=== PATIENT | female | born 2000 | race Caucasian/White ===

== ENCOUNTER → 2021-08-05 | Outpatient (CLI) | payer MEDICAID, SELFPAY ==
[2021-08-05 15:50] LABS: Hematocrit 31.7 % (37-47); Hemoglobin 10.5 g/dL (12.0-15.0); Mean Corp Hgb Conc 33.1 g/dL (32-36); Mean Corpuscular Volume 90.6 fL (81-99); Mean Platelet Vol. 10.1 fl (6.2-12.0); Platelet Count 237 K/mm3 (150-450); RBC Distribution Width CV 13.2 % (11.6-14.6); RBC Distribution Width SD 43.5 fl (35.1-43.9); White Blood Count 9.5 K/mm3 (4.4-11.0)
[2021-08-05 15:56] LABS: Glucose Challenge Gest 1H 50g 138 mg/dL (70-140)
== END | disposition home or self-care (01) ==
PROVIDERS: Visit Provider Obstetrics & Gynecology
DX: Z34.82 Encounter for supervision of other normal pregnancy, second trimester (principal)
CPT/HCPCS: 36415; 82950; 85027

== ENCOUNTER 2021-09-02 19:32 | Outpatient (CLI) | payer MEDICAID, SELFPAY ==
[2021-09-02 19:46] VITALS: TEMP 36.9
[2021-09-02 19:48] VITALS: BP 119/61; PULSE 105
[2021-09-02 19:50] VITALS: PULSE 103; O2SAT 98; BMI 25.0
[2021-09-02 19:59] VITALS: PULSE 96; O2SAT 98
[2021-09-02 20:04] VITALS: PULSE 100; O2SAT 98
[2021-09-02] MEDS: Lactated Ringers 1,000 ML 999 ML IV (20:15)
[2021-09-02] MEDS: Ondansetron 4 MG/2 ML Vial IV (20:19)
--- NOTE | 2021-09-15 08:58 | OB.TRI.NOTE ---
HPI - General General Date of Service: 09/02/21 HPI Narrative LOURDES MARTIN, is a 21 F who presents to labor and delivery at 31 weeks 2 days gestation with nausea, vomiting, diarrhea for 5 days. She indicates that her family has had the flu including her other children and she recently vomited twice. She is feeling movement but it seems to be diminished. Maternal Data Information Final SOO: 11/02/21 Final SOO Source: US <20 weeks Gestational age: 31 weeks 2 days PFSH PFSH Home Medications eqkpuynz-[id number]-[id number]-FA 1 mg tablet 1 tab PO DAILY 09/02/21 [History Last Taken 09/01/21] Allergy/AdvReac Type Severity Reaction Status Date / Time No Known Allergies Allergy Verified 09/02/21 19:50 NST FHR Rate Baby A NST Reactive:: Yes FHR Category:: Category I Assessment & Plan (1) Decreased movement: PLAN: 31-week 2-day gestation with decreased movement and nausea and vomiting likely from viral gastroenteritis. Denies any contractions or signs and symptoms of labor. Nausea improved with IV hydration and IV Zofran. Reactive nonstress test. Patient discharged to home with routine instructions.
== END 2021-09-02 21:25 | disposition home or self-care (01) ==
LOC: WPOUT 19:39 → WP 19:39
PROVIDERS: Visit Provider Obstetrics & Gynecology
DX: O36.8130 Decreased fetal movements, third trimester, not applicable or unspecified (principal); Z3A.31 31 weeks gestation of pregnancy; O21.9 Vomiting of pregnancy, unspecified
CPT/HCPCS: 59025; 59050; 96361; 99218; J7120; G0378; J2405

== ENCOUNTER 2021-09-16 17:34 | Emergency (ER) | payer MEDICAID, SELFPAY ==
[2021-09-16 17:35] VITALS: BP 94/62; PULSE 105; RESP 16; TEMP 36.8; O2SAT 98; BMI 25.4
--- NOTE | 2021-09-16 17:56 | ED.VIS.DYS ---
HPI <MORGAN Stanford - Last Filed: 09/16/21 19:18> History of Present Illness Chief Complaint: Asthma Narrative Narrative: 21-year-old female with history of asthma, currently 33 weeks presents with 1 week of increased shortness of breath. She states she had this intermittently throughout her but she seems more short of breath over the last week. It is the same whether she is sitting, lying down, or walking and there is no aggravating or alleviating factors. It is not exertional or pleuritic. She was using her inhaler but then noticed it was . Today she also had some bilateral chest pain but none currently. No fever cough or congestion. Today she was also feeling mild lower abdominal contractions which she thinks might be Dank Patel. She has had normal movement and no vaginal bleeding or fluids. She went to the OB ED but they did not have a bed so they sent her down here. PFSH <MORGAN Stanford - Last Filed: 09/16/21 19:18> [facility] Home Medications vyagtlck-[id number]-FA 1 mg tablet 1 tab PO DAILY 09/02/21 [History Last Taken 09/01/21] albuterol sulfate 90 mcg/actuation aerosol inhaler (Proventil HFA) 2 puff inhalation Q4H #6.7 grams 09/16/21 [Rx Last Taken Unknown] Allergy/AdvReac Type Severity Reaction Status Date / Time No Known Allergies Allergy Verified 09/16/21 17:38 Social History Smoking Status: Never smoker ROS <MORGAN Stanford - Last Filed: 09/16/21 19:18> ROS ED ROS Narrative Constitutional: Negative for fever, chills, malaise. Eyes: Negative for visual change. ENT: Negative for sore throat, ear pain, rhinorrhea. CVS: Positive for chest pain. Negative for palpitations, syncope. Respiratory: Positive for shortness of breath. Negative for cough, orthopnea. GI: Negative for abdominal pain, nausea, vomiting, diarrhea, constipation, melena, hematochezia. : Negative for dysuria, hematuria or frequency. Neuro: Negative for headache, motor/sensory dysfunction. Skin: Negative for rash, abscess, or wound. Musc: Negative for joint pain, swelling, trauma. Heme: Negative for easy bruising, bleeding, lymphadenopathy. EXAM <MORGAN Stanford - Last Filed: 09/16/21 19:18> Physical Exam Narrative Exam Narrative: CONST: Patient sitting in no acute distress. EYES: Normal inspection. NECK: Normal inspection. RESP: No respiratory distress, CTAB. CVS: Regular rate and rhythm, no murmur, no gallop. ABD: Gravid abdomen is soft and nontender, no guarding or rebound.. Back: Normal inspection, no CVA tenderness. SKIN: Color normal, no rash, warm, dry, intact. EXTREMITIES: Normal appearance, no pedal edema. NEURO: Oriented x4. PSYCH: Normal affect. Const Vital Signs: 09/16/21 17:35 09/16/21 17:50 09/16/21 21:45 Temperature 98.2 F Temperature Source Temporal Pulse Rate 105 H 84 Respiratory Rate 16 16 Respiratory Effort Short of Breath Blood Pressure 94/62 117/72 Blood Pressure Mean 72 87 Pulse Ox 98 96 Oxygen Delivery Method Room Air Room Air <Dr. Coleman Medrano MD - Last Filed: 09/16/21 22:32> Physical Exam Const Vital Signs: 09/16/21 17:35 09/16/21 17:50 09/16/21 21:45 Temperature 98.2 F Temperature Source Temporal Pulse Rate 105 H 84 Respiratory Rate 16 16 Respiratory Effort Short of Breath Blood Pressure 94/62 117/72 Blood Pressure Mean 72 87 Pulse Ox 98 96 Oxygen Delivery Method Room Air Room Air MDM <MORGAN Stanford - Last Filed: 09/16/21 19:18> [facility] Narrative Medical decision making narrative: Patient is 33 weeks presenting with 1 week history of shortness of breath. She feels short of breath all the time whether resting, sleeping, or walking with no change. She had transient chest pain this morning but none now. She has no exertional or pleuritic pain. No leg pain or swelling. No history of DVT/PE or recent surgery or immobilization. She appears well and nontoxic. Heart rate was 105, otherwise normal vital signs. She is speaking in full sentences in no distress and is 98% on room air. Heart is regular. Lungs clear. Gravid abdomen soft, nontender. She is having normal movement and no vaginal bleeding or discharge. EKG is normal sinus rhythm with no ischemic changes. Based on her history I really have no concern for PE. Labs show normal white count and microcytic anemia of 10.1 not significantly changed from 10.5 around 6 weeks ago. BMP is normal. UA is contaminated so will defer antibiotics and sent for culture. 1. Shortness of breath Lab Data Attestation: I reviewed the patient's lab results. Labs: Laboratory Results - last 24 hr 09/16/21 09/16/21 09/16/21 18:05 18:27 18:27 WBC 9.1 RBC 3.48 L Hgb 10.1 L Hct 31.0 L MCV 89.1 MCH 29.0 MCHC 32.6 RDW Std Deviation 42.5 RDW Coeff of Elder 13.1 Plt Count 224 MPV 10.1 Immature Gran % (Auto) 0.800 Neut % (Auto) 74.1 H Lymph % (Auto) 18.4 L [place] % (Auto) 6.2 Eos % (Auto) 0.4 Baso % (Auto) 0.1 Absolute Neuts (auto) 6.8 Absolute Lymphs (auto) 1.68 Nucleated RBC % 0 D-Dimer Quant (PE/DVT) Sodium 137 Potassium 3.6 Chloride 107 Carbon Dioxide 24.0 Anion Gap 6 BUN 9 Creatinine 0.56 Estim Creat Clear Calc 138.38 Est GFR (MDRD) Af Amer 178 Est GFR (MDRD) Non-Af 147 BUN/Creatinine Ratio 16.2 Glucose 77 Calcium 8.2 L Urine Color Yellow Urine Clarity Sl. Cloudy Urine pH 6.5 Ur Specific [place] 1.010 Urine Protein 15 H Urine Glucose (UA) Normal Urine Ketones Negative Urine Occult Blood Negative Urine Nitrite Negative Urine Bilirubin Negative Urine Urobilinogen Normal Ur Leukocyte Esterase 500 H Urine RBC 0 SEEN Urine WBC 10-25 SEEN Ur Squamous Epith Cells 5-10 SEEN Urine Bacteria 2+ Urine Mucus 0 SEEN 09/16/21 19:50 WBC RBC Hgb Hct MCV MCH MCHC RDW Std Deviation RDW Coeff of Elder Plt Count MPV Immature Gran % (Auto) Neut % (Auto) Lymph % (Auto) [place] % (Auto) Eos % (Auto) Baso % (Auto) Absolute Neuts (auto) Absolute Lymphs (auto) Nucleated RBC % D-Dimer Quant (PE/DVT) 0.91 H* Sodium Potassium Chloride Carbon Dioxide Anion Gap BUN Creatinine Estim Creat Clear Calc Est GFR (MDRD) Af Amer Est GFR (MDRD) Non-Af BUN/Creatinine Ratio Glucose Calcium Urine Color Urine Clarity Urine pH Ur Specific [place] Urine Protein Urine Glucose (UA) Urine Ketones Urine Occult Blood Urine Nitrite Urine Bilirubin Urine Urobilinogen Ur Leukocyte Esterase Urine RBC Urine WBC Ur Squamous Epith Cells Urine Bacteria Urine Mucus Radiography Diagnostic Testing: Clinical Impression(s) from Imaging Studies Chest CTA 09/16/21 20:36 IMPRESSION: Pulmonary artery opacification is insufficient to exclude embolus. No obvious central pulmonary embolus. Enlarged pulmonary trunk may be secondary to inspiratory effort. Correlate with clinical suspicion for pulmonary hypertension. Small hiatal hernia. No other acute abnormal finding in the chest. Electronically Signed: Eduar Stoen MD at 21:25 EDT , EKG Initial EKG: Attestation: I personally reviewed and interpreted this EKG as follows: Interpretation: Sinus Rhythm and No Acute Injury Pattern Comments: Normal sinus rhythm, normal intervals, no acute ischemia <Dr. Coleman Medrano MD - Last Filed: 09/16/21 22:32> MDM MDM Narrative Medical decision making narrative: Patient is 33 weeks presenting with 1 week history of shortness of breath. She feels short of breath all the time whether resting, sleeping, or walking with no change. She had transient chest pain this morning but none now. She has no exertional or pleuritic pain. No leg pain or swelling. No history of DVT/PE or recent surgery or immobilization. She appears well and nontoxic. Heart rate was 105, otherwise normal vital signs. She is speaking in full sentences in no distress and is 98% on room air. Heart is regular. Lungs clear. Gravid abdomen soft, nontender. She is having normal movement and no vaginal bleeding or discharge. EKG is normal sinus rhythm with no ischemic changes. Based on her history I really have no concern for PE. Labs show normal white count and microcytic anemia of 10.1 not significantly changed from 10.5 around 6 weeks ago. BMP is normal. UA is contaminated so will defer antibiotics and sent for culture. 1. Shortness of breath I have personally performed a face to face assessment of the patient and have reviewed the RADHA Note. I performed a substantive portion of the visit including all aspects of the following. My miller findings include: History is [21-year-old healthy female history of asthma currently 33 weeks that I am seeing with her physician bilingual administrative assistant. Patient states that last week she has had intermittent shortness of breath. Never had a DVT or PE. Denies leg pain or swelling. Really denies any specific chest pain. There is no hemoptysis. She says that shortness of breath comes and goes. It is not specifically associated with exertion. She really has not been wheezing. She said it may or may not be her asthma. She has had no URI symptoms. No melena.] Exam is [well-appearing 21-year-old no acute distress vital signs stable afebrile. Pulse ox 90% room air no signs hypoxia. H EENT exam unremarkable. Moist remembers. Neck nontender no JVD. Lungs clear to auscultation bilaterally. Heart regular rhythm rate of 85 no murmur. Abdomen soft nontender no peritoneal signs. Distended gravid uterus. Moving all 4 extremities. Equal symmetrical radial pulses. Calves are nontender without edema or cords. Neurologically she is awake and alert. Patient's exam is very benign.] Medical Decision Making [21-year-old 33 weeks with intermittent atypical shortness of breath. On exam she is not wheezing. She is on silvina URI symptoms. We will do a shortness of breath work-up. Clinically I do not think this is a PE but she does have risk being . We will obtain a D-dimer. CBC shows a mild anemia with a hemoglobin of 10.1 which is stable and baseline for her. White count 9. Electrolytes unremarkable gap of 6. Normal BUN and creatinine. Glucose 77. UA is contaminated. She is not having any urinary tract infection symptoms. I do not think this needs to be treated.] Other additions or changes: [None] Repeat exam patient is doing well at 10:25 PM. She has no complaints. She is not short of breath. CTA was not completed definitively did not see any PEs but they cannot rule out peripheral PEs. Clinically analogous to case. Patient be discharged home with an inhaler and follow-up with her STRING WINDING MACHINE OPERATOR. I have the OB group on page to ensure close follow-up. Lab Data Labs: Laboratory Results - last 24 hr 09/16/21 09/16/21 09/16/21 18:05 18:27 18:27 WBC 9.1 RBC 3.48 L Hgb 10.1 L Hct 31.0 L MCV 89.1 MCH 29.0 MCHC 32.6 RDW Std Deviation 42.5 RDW Coeff of Elder 13.1 Plt Count 224 MPV 10.1 Immature Gran % (Auto) 0.800 Neut % (Auto) 74.1 H Lymph % (Auto) 18.4 L [place] % (Auto) 6.2 Eos % (Auto) 0.4 Baso % (Auto) 0.1 Absolute Neuts (auto) 6.8 Absolute Lymphs (auto) 1.68 Nucleated RBC % 0 D-Dimer Quant (PE/DVT) Sodium 137 Potassium 3.6 Chloride 107 Carbon Dioxide 24.0 Anion Gap 6 BUN 9 Creatinine 0.56 Estim Creat Clear Calc 138.38 Est GFR (MDRD) Af Amer 178 Est GFR (MDRD) Non-Af 147 BUN/Creatinine Ratio 16.2 Glucose 77 Calcium 8.2 L Urine Color Yellow Urine Clarity Sl. Cloudy Urine pH 6.5 Ur Specific [place] 1.010 Urine Protein 15 H Urine Glucose (UA) Normal Urine Ketones Negative Urine Occult Blood Negative Urine Nitrite Negative Urine Bilirubin Negative Urine Urobilinogen Normal Ur Leukocyte Esterase 500 H Urine RBC 0 SEEN Urine WBC 10-25 SEEN Ur Squamous Epith Cells 5-10 SEEN Urine Bacteria 2+ Urine Mucus 0 SEEN 09/16/21 19:50 WBC RBC Hgb Hct MCV MCH MCHC RDW Std Deviation RDW Coeff of Elder Plt Count MPV Immature Gran % (Auto) Neut % (Auto) Lymph % (Auto) [place] % (Auto) Eos % (Auto) Baso % (Auto) Absolute Neuts (auto) Absolute Lymphs (auto) Nucleated RBC % D-Dimer Quant (PE/DVT) 0.91 H* Sodium Potassium Chloride Carbon Dioxide Anion Gap BUN Creatinine Estim Creat Clear Calc Est GFR (MDRD) Af Amer Est GFR (MDRD) Non-Af BUN/Creatinine Ratio Glucose Calcium Urine Color Urine Clarity Urine pH Ur Specific [place] Urine Protein Urine Glucose (UA) Urine Ketones Urine Occult Blood Urine Nitrite Urine Bilirubin Urine Urobilinogen Ur Leukocyte Esterase Urine RBC Urine WBC Ur Squamous Epith Cells Urine Bacteria Urine Mucus Radiography Diagnostic Testing: Clinical Impression(s) from Imaging Studies Chest CTA 09/16/21 20:36 IMPRESSION: Pulmonary artery opacification is insufficient to exclude embolus. No obvious central pulmonary embolus. Enlarged pulmonary trunk may be secondary to inspiratory effort. Correlate with clinical suspicion for pulmonary hypertension. Small hiatal hernia. No other acute abnormal finding in the chest. Electronically Signed: Eduar Stone MD at 21:25 EDT , EKG Initial EKG: Interpretation: Sinus Tachycardia Discharge Plan Triage Chief Complaint: Asthma ED Midlevel Provider: Anne Nogueira ED Provider: Coleman Medrano Dx/Rx/DC Orders Clinical Impression: Acute dyspnea, Asthma, Third trimester , Anemia in Instructions: ED Dyspnea, Asthma Prescriptions: New albuterol sulfate [Proventil HFA] 90 mcg/actuation HFA aerosol inhaler 2 puff inhalation Q4H Qty: 6.7 1RF No Action 1 mg Tablet 1 tab PO DAILY Primary Care Provider: Care Physician,No Primary Referrals: Getachew Dsouza MD [STAFF PHYSICIAN] - As soon as possible Care Physician,No Primary [Primary Care Provider] - Activity Restrictions/Additional Instructions: We think your shortness of breath is most likely secondary to her asthma. Use your inhaler as needed. The CAT scan did not show any signs of a blood clot however could not completely rule out small blood clots in the periphery of your lungs. Follow-up with your STRING WINDING MACHINE OPERATOR to ensure you are improving. Return if you are feeling worse or start coughing up blood. Disposition Disposition: Home, Self Care
--- NOTE | 2021-09-16 17:58 | EKG12_ITS ---
Test Reason : asthma Blood Pressure : / mmHG Vent. Rate : 081 BPM Atrial Rate : 081 BPM P-R Int : 116 ms QRS Dur : 084 ms QT Int : 350 ms P-R-T Axes : 041 046 020 degrees QTc Int : 406 ms Normal sinus rhythm Normal ECG Confirmed by ALY HERNANDEZ, VIDAL ([id number]), technical editor ADRIANNA VELEZ ([id number]) on 09/27/2021 2:11:17 PM Referred By: Mitchell Confirmed By:VIDAL LU MD
--- NOTE | 2021-09-16 18:06 | EKG12_ITS ---
Test Reason : asthma Blood Pressure : / mmHG Vent. Rate : 081 BPM Atrial Rate : 081 BPM P-R Int : 116 ms QRS Dur : 084 ms QT Int : 350 ms P-R-T Axes : 041 046 020 degrees QTc Int : 406 ms Normal sinus rhythm Normal ECG No previous ECGs available Confirmed by ALY HERNANDEZ, VIDAL ([id number]), editorial director ADRIANNA VELEZ ([id number]) on 09/29/2021 1:08:12 PM Referred By: Mitchell Confirmed By:VIDAL LU MD
--- NOTE | 2021-09-16 18:07 | NURSING ---
NO OLD EKGS
[2021-09-16 18:10] LABS: Mucous, Urine 0 SEEN /hpf (<or=2+); Red Blood Cells-Urine 0 SEEN /hpf (0-5)
[2021-09-16 18:11] LABS: Color, Urine Yellow (Yellow); Glucose, Dipstick Normal (Normal); Ketone-Dipstick Negative (Negative); Leukocyte Esterase-Dipstick 500 /ul (Negative); Nitrite-Dipstick Negative (Negative); Occult Blood-Urine Negative /ul (Negative); Protein-Dipstick 15 mg/dl (Negative); Urine Bilirubin Dipstick Negative (Negative); Urine Clarity Sl. Cloudy (Clear); Urine Urobilinogen Normal (Normal); Urine pH 6.5 (5.0 - 8.0)
[2021-09-16 18:30] LABS: Bacteria 2+ /hpf (None Seen); Squamous Epithelial Cells - UA 5-10 SEEN /hpf (5-10); White Blood Cells 10-25 SEEN /hpf (0-5)
[2021-09-16 19:02] LABS: Absolute Lymphocyte Count 1.68 X10^3/uL (0.83-4.51); Absolute Neutrophil Count 6.8 X10^3/uL (2.0-7.7); Basophil# 0.01 X10^3/uL; Basophil% 0.1 % (0-1); Eosinophil# 0.04 X10^3/uL; Eosinophils% 0.4 % (0-5); Hemoglobin 10.1 g/dL (12.0-15.0); Lymphocyte # 1.68 X10^3/ul (0.83-4.51); Lymphocyte % 18.4 % (19-41); Mean Corp Hgb Conc 32.6 g/dL (32-36); Mean Corpuscular Volume 89.1 fL (81-99); Mean Platelet Vol. 10.1 fl (6.2-12.0); Monocyte# 0.57 X10^3/uL; Monocyte% 6.2 % (0-10); NRBC Flagged by Analyzer 0 % (0-5); Neutrophil # 6.76 X10^3/uL (2.7-7.7); Neutrophil % 74.1 % (47-70); Platelet Count 224 K/mm3 (150-450); RBC Distribution Width CV 13.1 % (11.6-14.6); RBC Distribution Width SD 42.5 fl (35.1-43.9); Red Blood Count 3.48 M/mm3 (4.2-5.4); White Blood Count 9.1 K/mm3 (4.4-11.0)
[2021-09-16 19:12] LABS: Anion Gap 6 (5-15); BUN 9 mg/dL (7-18); BUN/Creat Ratio 16.2 RATIO (10-20); Calcium,Total 8.2 mg/dL (8.5-10.1); Chloride 107 mmol/L (98-107); Creatinine, Serum 0.56 mg/dL (0.55-1.02); EST Glomerular Filtration Rate 147 mL/min (>60); Est Glom Filt Rate - Afr Amer 178 mL/min (>60); Estimated Creatinine Clearance 138.38 ml/min; Glucose 77 mg/dL (74-106); Potassium 3.6 mmol/L (3.5-5.1); Sodium Level 137 mmol/L (136-145)
[2021-09-16 20:25] LABS: D-Dimer Quantitative (DVT/PE) 0.91 FEU/ug/m (0.27-0.49)
--- NOTE | 2021-09-16 20:36 | CT_ITS ---
STUDY: CTA CHEST REASON FOR EXAM: Female, 21 years old. Shortness of breath x1 week, elevated d-dimer. . SHIELD abd RADIATION DOSAGE (If Supplied By Facility): CTDIvol = ( 10.01 ) mGy, DLP = ( 227.98 ) mGycm TECHNIQUE: The examination was performed with the intravenous administration of IV 100mL Isovue-370. Post-processing of the angiographic images was performed, with multiplanar reformation and 3D reconstruction. Individualized dose optimization techniques were used for this CT. COMPARISON: None. FINDINGS: Insufficient enhancement of the central and peripheral pulmonary arteries to exclude pulmonary embolus. No finding to suggest central pulmonary artery filling defect. Enlarged pulmonary trunk. Normal thoracic aorta and visualized great vessels. There is no demonstrated aortic dissection. Normal heart and pericardium. Normal mediastinum. Normal hilar regions. Normal visualized trachea and bronchi. Bronchus suis. The lungs are well expanded. Normal pulmonary parenchyma. Normal pleura. Normal chest wall structures. Normal thoracolumbar vertebral alignment. There is a small hiatal hernia. CT/CTA Chest W/WO Contrast IMPRESSION: Pulmonary artery opacification is insufficient to exclude embolus. No obvious central pulmonary embolus. Enlarged pulmonary trunk may be secondary to inspiratory effort. Correlate with clinical suspicion for pulmonary hypertension. Small hiatal hernia. No other acute abnormal finding in the chest. Electronically Signed: Eduar Stone MD at 21:25 EDT ,
[2021-09-16 21:45] VITALS: BP 117/72; PULSE 84; RESP 16; O2SAT 96
[2021-09-16 22:46] VITALS: BP 112/56; PULSE 82; RESP 16; O2SAT 98
== END 2021-09-16 23:03 | disposition home or self-care (01) ==
PROVIDERS: Physician Assistant; Emergency Provider Emergency Medicine; Visit Provider Emergency Medicine
DX: O99.513 Diseases of the respiratory system complicating pregnancy, third trimester (principal); J45.909 Unspecified asthma, uncomplicated; O99.013 Anemia complicating pregnancy, third trimester; D50.9 Iron deficiency anemia, unspecified; R07.9 Chest pain, unspecified; Z3A.33 33 weeks gestation of pregnancy
CPT/HCPCS: 71275; 80048; 81001; 85025; 85379; 87086; 87088; 87186; 93005; 99282; Q9967; A4216

== ENCOUNTER → 2021-09-30 | Outpatient (CLI) | payer MEDICAID, SELFPAY | END | disposition home or self-care (01) | PROVIDERS: Visit Provider Obstetrics & Gynecology | DX: Z36.85 Encounter for antenatal screening for Streptococcus B (principal) | CPT/HCPCS: 87077; 87081; 87186 ==

== ENCOUNTER 2021-11-05 04:06 | Inpatient (IN) | payer MEDICAID, SELFPAY ==
[2021-11-05] VITALS (40 sets, daily range): BP systolic 90–130; BP diastolic 47–83; PULSE 63–116; RESP 16; TEMP 36.1–37.2; O2SAT 93–100; BMI 26.1
[2021-11-05] MEDS: LACTATED RINGERS 500 ML 999 ML IV ×2 (04:15→05:00)
[2021-11-05 04:26] LABS: Absolute Neutrophil Count 8.7 X10^3/uL (2.0-7.7); Basophil# 0.01 X10^3/uL; Basophil% 0.1 % (0-1); Eosinophil# 0.05 X10^3/uL; Eosinophils% 0.4 % (0-5); Hemoglobin 11.5 g/dL (12.0-15.0); Lymphocyte % 16.8 % (19-41); Mean Corp Hgb Conc 32.9 g/dL (32-36); Mean Corpuscular Hgb 28.9 pg (27.0-32.0); Mean Corpuscular Volume 87.9 fL (81-99); Mean Platelet Vol. 10.3 fl (6.2-12.0); Monocyte# 0.61 X10^3/uL; Monocyte% 5.4 % (0-10); NRBC Flagged by Analyzer 0 % (0-5); Neutrophil # 8.67 X10^3/uL (2.7-7.7); Neutrophil % 76.9 % (47-70); Platelet Count 171 K/mm3 (150-450); RBC Distribution Width CV 14.3 % (11.6-14.6); RBC Distribution Width SD 45.4 fl (35.1-43.9); Red Blood Count 3.98 M/mm3 (4.2-5.4); White Blood Count 11.3 K/mm3 (4.4-11.0)
[2021-11-05] MEDS: fentaNYL-bupivacaine (epidural) 100 ML BAG EPIDURAL ×2 (05:39→10:01)
[2021-11-05] MEDS: Lactated Ringers 1,000 ML 50 ML IV (05:40)
[2021-11-05] MEDS: Ondansetron 4 MG/2 ML Vial IV ×2 (07:05→12:04)
--- NOTE | 2021-11-05 07:45 | PCM.HP.BLA ---
History and Physical Date of Admission: 11/05/21 Chief complaint: Contractions History present illness: 21-year-old at 40 weeks and 3 days with SOO 11/02/2021 arrives with contractions. Denies headache, visual changes, chest pain, shortness of breath, nausea vomit, right upper quadrant pain. Patient states good movement. Obstetrical history: G1: Term male 7 pounds 1 ounce G2: 38-week male 7 pounds 3 ounces G3: Current Past medical history: None Medications: None Past surgical history: Rectal surgery Allergies: No known drug allergies Social history: Denies smoking, alcohol use, drug use Family history: Denies history DVT or PE Review of systems: Besides above pertinent positives a full review of systems was performed and found to be negative Physical exam: Vitals: Blood pressure 113/63 pulse 85 temp 97.7 Fahrenheit SPO2 97% on room air General: Normal-appearing no acute distress none HEENT: Normocephalic atraumatic no cervical of adenopathy Cardiac/respiratory: No use accessory muscles, nonlabored breathing Abdomen: Soft, nontender, gravid Pelvic exam: Cervical exam 6/70/-2 Extremities: No peripheral edema normal peripheral pulses Psych: Normal affect and demeanor nonpressured speech Labs: White blood cell count 11.3 hemoglobin 11.5 hematocrit 35% platelets 171 blood type a positive antibody negative Bedside ultrasound: Cephalic Assessment plan: 21-year-old G3, P2 in labor Admit labor delivery CEFM GBS positive for penicillin Routine orders Anesthesia see
--- NOTE | 2021-11-05 08:22 | PN.OBGYN_ITS ---
Subjective Subjective Comfortable with epidural Objective Data Objective Data Vital Signs: Vital Signs Temp Pulse BP Pulse Ox 97.7 F L 85 113/63 97 11/05/21 07:20 11/05/21 07:20 11/05/21 07:20 11/05/21 07:20 Weight: 152 lb Body Mass Index (BMI) 26.1 Intake & Output: Intake and Output for Last 24 Hours 11/03/21 11/04/21 11/05/21 23:59 23:59 23:59 Intake Total 1105 / 1105 Balance 1105 / 1105 Lab / Micro Data Result Diagrams: 11/05/21 04:15 Labs: Laboratory Results - last 24 hr 11/05/21 04:15: WBC 11.3 H, RBC 3.98 L, Hgb 11.5 L, Hct 35.0 L, MCV 87.9, MCH 28.9, MCHC 32.9, RDW Std Deviation 45.4 H, RDW Coeff of Elder 14.3, Plt Count 171, MPV 10.3, Immature Gran % (Auto) 0.400, Neut % (Auto) 76.9 H, Lymph % (Auto) 16.8 L, [place] % (Auto) 5.4, Eos % (Auto) 0.4, Baso % (Auto) 0.1, Absolute Neuts (auto) 8.7 H, Absolute Lymphs (auto) 1.90, Nucleated RBC % 0 11/05/21 04:15: Blood Type A POSITIVE, Antibody Screen NEGATIVE Micro: Microbiology 11/05/21 04:12 Nasal Secretion SARS-CoV-2 Antigen (Rapid) - Final Physical Exam Const alert, oriented x3, no apparent distress, average body habitus, healthy appearing and well nourished HEENT normocephalic and moist oral mucous membranes Eyes PERRL Resp normal respiratory effort, no retractions and no use of accessory muscles Narrative: Cervical exam: /-2. AROM yellow-tinged fluid Extremity normal to inspection and no clubbing, cyanosis or edema Neuro moves all extremities and no focal motor deficits Psych mental status grossly normal, affect normal, speech normal and activity/motor behavior normal Assessment & Plan (1) : PLAN: Patient seen and examined. AROM yellow-tinged fluid. Continue current management
[2021-11-05] MEDS: Penicillin G 3,000,000 Units 50 ML 100 UNITS IV (08:27)
[2021-11-05 08:56] LABS: Hepatitis C Antibody Non-Reactive (Nonreactive)
[2021-11-05 09:02] LABS: HIV - WCH Non-Reactive (Nonreactive)
[2021-11-05] MEDS: Lactated Ringers 1,000 ML 200 ML IV (10:03)
[2021-11-05] MEDS: Oxytocin 30 units/NS 500 ml 30 UNITS/500 ML IV.SOLN 334 UNITS IV (11:24)
[2021-11-05] MEDS: Methylergonovine 0.2 MG/ML Ampul IM (11:27)
--- NOTE | 2021-11-05 11:32 | EX.PCM.OBRPT ---
Vaginal Delivery Findings Description of Procedure: Normal spontaneous vaginal delivery of a viable female infant, vertex LIVIER. Head and shoulders delivered with ease. Cord cut and clamped. Baby handed off to patient. Placenta delivered via cord traction and fundal massage. Methergine IM with short second stage given prophylactically. No lacerations noted. EBL 250 cc Apgars 9/9
[2021-11-05] MEDS: Acetaminophen 500 MG Tablet 1000 MG PO ×2 (12:04→17:57)
[2021-11-05] MEDS: Ibuprofen 600 MG Tablet PO ×2 (17:10→23:00)
[2021-11-06 00:25] VITALS: BP 111/54; PULSE 100; RESP 16; TEMP 36.5
[2021-11-06 04:00] VITALS: BP 111/65; PULSE 72; RESP 15; TEMP 36.8
[2021-11-06] MEDS: Acetaminophen 500 MG Tablet 1000 MG PO (04:45)
[2021-11-06 09:15] VITALS: BP 104/51; PULSE 60; RESP 16; TEMP 36.8
--- NOTE | 2021-11-06 10:06 | DCINST_ITS ---
Discharge Instructions Diet Discharge Diet: No restrictions Activity Discharge Activity: Return to Normal Activity, May Drive and May Shower May resume sexual activity in: 4-6 weeks Weight Bearing Status: Weight bearing as tolerated Dressing / Incision Call your doctor if your incision/area has: Continuous Slow Oozing and Foul Smelling Discharge Call your doctor if you observe: Fever of 101 or Higher, Shortness of breath and Chest pain Follow Up Care Please Follow Up With: Getachew Dsouza MD When: 4 to 6 weeks Test Results: Test results from this visit will be discussed in further detail at your follow- up appointment, if applicable. Discharge Plan Admission Admit Date/Time: 11/05/21 04:06 Attending Provider: Getachew Dsouza Primary Care Provider: Kristi Meléndez Discharge Orders/Prescriptions Prescriptions: No Action 1 mg Tablet 1 tab PO DAILY albuterol sulfate [Proventil HFA] 90 mcg/actuation HFA aerosol inhaler 2 puff inhalation Q4H Referrals / Follow Up: Kristi Meléndez [Primary Care Provider] - Disposition Discharge Orders: Discharge Patient (Routine); Ordered 11/06/21 Ordered By: Dr. Getachew Dsouza
--- NOTE | 2021-11-06 10:06 | PCM.PN.OB ---
Subjective Subjective No overnight complaints Objective Data Objective Data Vital Signs: Vital Signs Temp Pulse Resp BP Pulse Ox O2 Del Method 98.3 F 60 16 104/51 L 97 Room Air 11/06/21 09:15 11/06/21 09:15 11/06/21 09:15 11/06/21 09:15 11/05/21 20:07 11/06/21 09:15 Oxygen Delivery Method Room Air Weight: 152 lb Body Mass Index (BMI) 26.1 Intake & Output: Intake and Output for Last 24 Hours 11/04/21 11/05/21 11/06/21 23:59 23:59 23:59 Intake Total 3575.84 / 3575.84 Output Total 1900 / 1900 Balance 1675.84 / 1675.84 Lab / Micro Data Result Diagrams: 11/05/21 04:15 Micro: Microbiology 11/05/21 04:12 Nasal Secretion SARS-CoV-2 Antigen (Rapid) - Final Physical Exam Const alert, oriented x3, no apparent distress, average body habitus, healthy appearing and well nourished HEENT normocephalic and moist oral mucous membranes Eyes PERRL Neck full ROM Resp normal respiratory effort, no retractions and no use of accessory muscles GI GI Narrative: Soft, nontender, uterus firm and below umbilicus Extremity normal to inspection, full ROM and no clubbing, cyanosis or edema Neuro moves all extremities and no focal motor deficits Psych mental status grossly normal, affect normal, speech normal and activity/motor behavior normal Assessment & Plan (1) : PLAN: day 1. Breast-feeding. Pain well controlled. Okay to discharge home if okay with associate professor of sociology
[2021-11-06 12:57] VITALS: BP 111/70; PULSE 79; RESP 16; TEMP 36.6
[2021-11-06] MEDS: Ibuprofen 600 MG Tablet PO (13:00)
--- NOTE | 2021-11-10 13:42 | NURSING ---
follow up phone call attempted. No answer. Left voicemail
== END 2021-11-06 15:25 | disposition home or self-care (01) | DRG 560 ==
LOC: WPOUT 04:08 → WP 04:08
PROVIDERS: Admitting Provider Obstetrics & Gynecology; PCP Family Medicine; Visit Provider Obstetrics & Gynecology
DX: O99.824 Streptococcus B carrier state complicating childbirth (principal); Z37.0 Single live birth; Z3A.40 40 weeks gestation of pregnancy
CPT/HCPCS: 59025; 59050; 85025; 86703; 86803; 86850; 86900; 86901; 87426; 99218; J7120; G0378; J2405

== ENCOUNTER → 2022-04-28 | Outpatient (CLI) | payer MEDICAID, SELFPAY ==
[2022-04-28 17:27] LABS: Absolute Lymphocyte Count 1.89 X10^3/uL (0.83-4.51); Absolute Neutrophil Count 6.9 X10^3/uL (2.0-7.7); Basophil# 0.01 X10^3/uL; Basophil% 0.1 % (0-1); Eosinophil# 0.06 X10^3/uL; Eosinophils% 0.6 % (0-5); Hematocrit 38.6 % (37-47); Hemoglobin 12.7 g/dL (12.0-15.0); Lymphocyte # 1.89 X10^3/ul (0.83-4.51); Lymphocyte % 20.3 % (19-41); Mean Corp Hgb Conc 32.9 g/dL (32-36); Mean Corpuscular Hgb 28.8 pg (27.0-32.0); Mean Corpuscular Volume 87.5 fL (81-99); Mean Platelet Vol. 10.2 fl (6.2-12.0); Monocyte# 0.41 X10^3/uL; Monocyte% 4.4 % (0-10); NRBC Flagged by Analyzer 0 % (0-5); Neutrophil # 6.92 X10^3/uL (2.7-7.7); Neutrophil % 74.4 % (47-70); Platelet Count 290 K/mm3 (150-450); RBC Distribution Width CV 13.4 % (11.6-14.6); RBC Distribution Width SD 43.2 fl (35.1-43.9); Red Blood Count 4.41 M/mm3 (4.2-5.4); White Blood Count 9.3 K/mm3 (4.4-11.0)
[2022-04-28 18:38] LABS: HIV - WCH Non-Reactive (Nonreactive); Hepatitis B Surface Antigen Non-Reactive (Nonreactive); Hepatitis C Antibody Non-Reactive (Nonreactive); Rubella IgG Reactive (Nonreactive); Syphilis Antibodies Non-reactive
[2022-05-05 18:33] LABS: HPV Reflexed? NOT INDICATED
== END | disposition home or self-care (01) ==
PROVIDERS: PCP Family Medicine; Visit Provider Obstetrics & Gynecology
DX: Z34.81 Encounter for supervision of other normal pregnancy, first trimester (principal); Z12.4 Encounter for screening for malignant neoplasm of cervix
CPT/HCPCS: 36415; 85025; 86703; 86762; 86780; 86803; 87086; 87088; 87340; 88175; G0145